=== PATIENT | male | born 1970 | race Caucasian/White ===

== ENCOUNTER 2016-10-20 17:34 | Emergency (ER) | payer OTHER ==
--- NOTE | ~2016-10-20 | US85 ---
[facility] A Service of [facility] [place] & [facility] RADIOLOGY TEXT RESULTS PATIENT: DEVIKA KIDD LOCATION: [facility] : 66 UNIT #: [id number] AGE: [address]: Shane Camacho MD SEX: M ORDER DR: [id number] [facility] [address] [place], [place] [address] [id number] E MR#: [id number] Acc #: [id number] NAME: DEVIKA KIDD. : 1970 SEX: M STUDY DATE/TIME: 10/20/2016 15:00 UNIT: [facility] ROOM: STUDY DESCRIPTION: LE Veins Unilat or Ltd Stdy Attending Physician: Generic Doctor Referring Physician: Raven Falk M.D. Ordering Physician: Alphonse Sun M.D. Primary Care Physician: Raven Falk M.D. MEDICAL IMAGING REPORT This report is preliminary unless electronic signature is present EXAM Right lower extremity venous ultrasound 10/20/2016 HISTORY Evaluate for DVT. Right meniscus tear. Uncontrolled swelling with increasing pain over last week, diabetes, smoker. TECHNIQUE Venous ultrasound examination of the right lower extremity was performed using grayscale, spectral Doppler and color flow Doppler imaging. FINDINGS The examination is negative. There is no evidence of right lower extremity deep venous thrombus from the groin to the lower calf. Visualized greater saphenous vein is also patent. IMPRESSION Negative examination. No evidence of right lower extremity deep venous thrombosis. Dictated by... Dickson Sanchez M.D. THIS IS AN ELECTRONICALLY VERIFIED REPORT Dickson Sanchez M.D. at 10/22/2016 5:52 PM Collins TD: 10/20/2016 18:18 JOB #: [id number] MEDICAL IMAGING REPORT COPY
== END 2016-10-20 17:55 | disposition home or self-care (01) ==
LOC: CED 17:34
DX: M25.561 Pain in right knee (principal); E11.9 Type 2 diabetes mellitus without complications; F17.210 Nicotine dependence, cigarettes, uncomplicated
CPT/HCPCS: 93971; 99284